=== PATIENT | female | born 1995 | race Caucasian/White ===

== ENCOUNTER 2016-08-02 16:50 | Emergency (ER) | payer OTHER ==
[~2016-08-02] VITALS: Ht 157.5 cm; Wt 61.0 kg
[2016-08-02 16:58] VITALS: TEMP 36.9; Ht 157.5 cm; Wt 61.0 kg
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
[2016-08-02] MEDS ORDERED: BCPILLS PO (17:50)
[2016-08-02] MEDS ORDERED: XYLOCAINE 1%/SOD BICARB 20 ML VIAL INFIL ONE (18:00)
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
[2016-08-02] MEDS ORDERED: CEPH500C2 PO (18:39)
[2016-08-02] MEDS ORDERED: OXYCODONE IR HOME PACK PO ONE (18:45)
[2016-08-02] MEDS ORDERED: ONDANSETRON HOME PACK 4MG OD TAB PO ONE (18:45)
[2016-08-02] MEDS ORDERED: CEPHALEXIN MONOHYDRATE 250 MG CAP PO ONE (18:45)
[2016-08-02] MEDS ORDERED: CEPHALEXIN 500MG HOME PACK 1 EA BTL PO ONE (18:45)
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
[2016-08-02 19:00] VITALS: BP 112/74; PULSE 104; O2SAT 100
== END 2016-08-02 19:15 | disposition home or self-care (01) ==
LOC: EDBD 16:50 → C.EDB 16:51
DX: S00.81XA Abrasion of other part of head, initial encounter (principal); S00.83XA Contusion of other part of head, initial encounter; S50.02XA Contusion of left elbow, initial encounter; S01.112A Laceration without foreign body of left eyelid and periocular area, initial encounter; S51.012A Laceration without foreign body of left elbow, initial encounter; V43.62XA Car passenger injured in collision with other type car in traffic accident, initial encounter; Y92.488 Other paved roadways as the place of occurrence of the external cause; Z79.3 Long term (current) use of hormonal contraceptives

== ENCOUNTER → 2017-02-11 | Outpatient (CLI) | payer OTHER ==
[~2017-02-11] MED LIST: BCPILLS PO
[2017-02-14 03:19] LABS: CHLAMYDIA TRACH RNA*** NOT DETECTED (NOT DETECTED); GC (NEIS GONORRHOEAE)RNA** NOT DETECTED (NOT DETECTED)
== END | disposition home or self-care (01) ==
LOC: C.LABSPEC 16:24
PROVIDERS: ATTEND Obstetrics & Gynecology
DX: Z01.419 Encounter for gynecological examination (general) (routine) without abnormal findings (principal)